=== PATIENT | female | born 1970 | race Caucasian/White ===

== ENCOUNTER 2021-12-10 10:49 | Emergency (ER) | payer OTHER ==
[~2021-12-10] VITALS: Ht 152.4 cm; Wt 63.5 kg
[2021-12-10] MEDS ORDERED: LISI10TA29 PO (11:01)
[2021-12-10] MEDS ORDERED: MECL-159 PO (11:14)
[2021-12-10] MEDS ORDERED: MECLIZINE HCL 25 MG TABLET PO ONE (11:15)
[2021-12-10] MEDS ORDERED: MECLIZINE HCL 25 MG TABLET ONE (11:29)
--- NOTE | 2021-12-10 11:29 | NUR ---
Pt was evaluated by provider. Medication was administered. Pt denies any adverse event from medication. Patient discharged to home in stable condition. Written and verbal after care instructions given. Patient verbalizes understanding of instructions. Stressed follow up or return to ER for worsening s/s.
[2021-12-10 11:32] VITALS: BP 154/92
== END 2021-12-10 11:32 | disposition home or self-care (01) ==
LOC: ER 10:52
DX: R42 Dizziness and giddiness (principal); I10 Essential (primary) hypertension; J45.909 Unspecified asthma, uncomplicated; Z91.010 Allergy to peanuts
CPT/HCPCS: A4663; J8597